=== PATIENT | female | born 1975 | race Caucasian/White ===

== ENCOUNTER 2022-08-24 13:50 | Outpatient (CLI) | payer BC, SELFPAY ==
--- NOTE | 2022-08-24 14:15 | MM_ITS ---
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 Images and reports are not available. No prior imaging at [facility]. COMPARISON: None. TECHNIQUE: Bilateral CC, MLO, and ML views. FINDINGS: Scattered fibroglandular densities bilaterally. Dense nodular parenchymal tissue upper outer LEFT janiya ast posterior depth measuring approximately 4.1 x 4.9 CM. Ultrasound is pending. Lobulated axillary l ymph nodes LEFT axillary tail. No other suspicious abnormalities. RIGHT breast appears unremarkable. ULTRASOUND BREAST LEFT TECHNIQUE: Ultrasound left breast focused area of concern. CLINICAL INFORMATION: NODULE. FINDINGS: Ultrasound upper outer quadrant LEFT breast. Dense underlying parenchymal tissue. No cystic or solid lesions. No suspicious lesions to target for biopsy. Slightly prominent normal-appearing lymph node LEFT axilla measuring 1.8 x 0.5 cm with normal fatty h ilum and cortex. MM/[place] [id number] IMPRESSION: BI-RADS: 2-Benign FOLLOW UP: 1 Year Follow-up Recommend return to annual screening mammography.
== END 2022-08-24 13:51 | disposition home or self-care (01) ==
PROVIDERS: PCP Internal Medicine; Visit Provider Internal Medicine
DX: N63.21 Unspecified lump in the left breast, upper outer quadrant (principal)
CPT/HCPCS: 76642; 77062; G0279

== ENCOUNTER 2022-09-28 14:42 | Outpatient (CLI) | payer BC, SELFPAY ==
--- NOTE | 2022-09-28 | US_ITS ---
WS: [id number] ULTRASOUND BREAST LEFT TECHNIQUE: Ultrasound left breast focused area of concern. CLINICAL INFORMATION: ABNORMAL MAMMO COMPARISON: August 24, 2022 ultrasound and mammography. Outside chest CT July 27, 2022 FINDINGS: Ultrasound LEFT breast 1:00-4:00 position. Dense underlying parenchymal tissue. No cystic or solid le sions. No suspicious lesions to target for biopsy. US/US breast LT limited* [id number] IMPRESSION: BI-RADS 2 benign FOLLOW UP: Recommend return to annual screening mammography.
== END 2022-09-28 14:43 | disposition home or self-care (01) ==
PROVIDERS: PCP Internal Medicine; Visit Provider Internal Medicine
DX: R92.8 Other abnormal and inconclusive findings on diagnostic imaging of breast (principal)
CPT/HCPCS: 76642